=== PATIENT | female | born 1965 | race Caucasian/White ===

== ENCOUNTER → 2016-08-28 | Day surgery (SDC) | payer OTHER ==
[~2016-08-28] MED LIST: BUPIVACAINE HCL PF 0.5% 10 ML VIAL ONE; FLUC100T2 PO; ISOSULFAN BLUE 50 MG/5 ML VIAL SQ ONE; KETOROLAC TROMETHAMINE 30 MG/ML (IVP) VIAL ONE; LACTATED RINGER'S 1000 ML INJ 1,000 ML ONE; LEVA750T PO; MIDAZOLAM HCL 2 MG/2 ML VIAL ONE; NYST1000 SWISH-SWAL; ONDANSETRON HCL 4 MG/2 ML VIAL IV PUSH ONE; PROPOFOL 200 MG/20 ML AMP IV ONE; SODIUM CHLORIDE 0.9% INJ 10 ML ONE; ceFAZolin 2 GM PREMIX 50 ML ONE
--- NOTE | 2016-08-31 07:39 | TN ---
cc: AMPARO AHN DATE OF SURGERY 08/28/2016 PRINCIPAL DIAGNOSIS Right breast cancer status post neoadjuvant chemotherapy. POSTOPERATIVE DIAGNOSIS Right breast cancer status post neoadjuvant chemotherapy. PROCEDURE PERFORMED Right breast needle-localized lumpectomy and right axillary sentinel lymph node biopsy with touch prep and left subclavian [id number] removal. SURGEON Amparo Ahn MD ANESTHESIA General via LMA device. INDICATION The patient is a 51-year-old female who had a clinical presentation of Stage III breast cancer. She completed neoadjuvant chemotherapy with an excellent clinical response and now presents for definitive surgical therapy. FINDINGS AT THE TIME OF SURGERY Two sentinel lymph nodes were sent for touch prep analysis. Lymph node #1 had a count of 10,154 and was not blue. Lymph node #2 was enlarged and suspicious with no blue dye or radioactive count. Both lymph nodes were negative by touch prep for metastatic disease. Two additional sentinel lymph nodes were later found which were not sent for touch prep. [place] lymph node #3 had a count of 849 and was 2+ blue and sentinel lymph node #4 had a count of 301 and was 1+ blue. Specimen mammogram did demonstrate an intact wire and the biopsy clip was identified within the tissue. PROCEDURE PERFORMED After informed consent was obtained and site verification was performed, the patient was brought to the radiology suite where she underwent needle localization of her prior right breast palpable mass and biopsy site as well as peritumoral radionuclide injection. She was then brought to the major operating room where she underwent general anesthesia via an LMA device. She was given a single dose of IV Ancef and sequential compression hose were placed. The right breast and arm as well as the left chest were then prepped and draped in sterile fashion. Two cc of half-strength Lymphazurin were injected in the subareolar right breast and a 5-minute massage was performed. An incision was anesthetized at the inferior aspect of the right axillary hairline and both sharp and electrocautery dissection were performed until the clavipectoral fascia was divided and the level I axilla was entered. Two mid-level I lymph nodes were identified and circumferentially dissected free from surrounding structures with a count as noted. These were sent for touch prep analysis which was negative for metastatic disease. Two additional lymph nodes were identified lower in Level I near the axillary tail of [place] and each of these was circumferentially dissected free from surrounding structures using the harmonic scalpel and these became sentinel nodes #3 and 4 which were sent for permanent pathologic evaluation. Good hemostasis was noted in the axilla and there was no other palpable adenopathy. The wound was closed using interrupted 3-0 Vicryl subcutaneous sutures and a 4-0 Monocryl subcuticular suture. Attention was then turned to the right breast where a very lateral wire was identified in the 9 o'clock location. The incision was anesthetized at the lateral aspect of the breast and the breast was incised sharply in the 9 o'clock location laterally. Both sharp and electrocautery dissection were performed until the wire entry point through the skin was identified and secured with a hemostat. The wire was cut off at the skin with pin cutters and a 2-0 silk transfixion suture was placed at the wire entry point into the breast tissue. Further sharp and electrocautery dissection was then performed circumferentially around the wire and the specimen was oriented with two sutures laterally, one short suture superiorly, and one long suture anteriorly. Inspection of the specimen did demonstrate that the inferior, posterior, and anterior margins appeared close and each of these margins was sharply re-excised with a stitch on the new margin and they were sent as separate permanent specimens. The lumpectomy specimen was sent to x-ray which did demonstrate an intact wire and biopsy clip and was then sent for permanent pathologic evaluation. Hemostasis was obtained within the breast cavity and the wound was closed using interrupted 3-0 Vicryl subcutaneous sutures and a 4-0 Monocryl subcuticular suture. Attention was then turned to the left breast where a medial [id number] site was noted. The area was anesthetized with 0.5% Marcaine plain and incised sharply. The [id number] reservoir was immediately identified and circumferentially dissected free from surrounding structures. The catheter was immediately identified as was the reservoir and sharp dissection was performed around the reservoir until it had been mobilized into the wound. The catheter was then delivered off the field and direct pressure was applied to the subclavian puncture wound for a total of 5 minutes. Good hemostasis was noted and this wound was closed using interrupted 3-0 Vicryl subcutaneous sutures and a 4-0 Monocryl subcuticular suture. Steri-Strips and a sterile dressing were applied. The patient tolerated the procedure well with an estimated blood loss of 50 cc and she was extubated in the operating room and brought to the recovery room in good condition. All sponge and needle counts were correct at the conclusion of the case. MD SUE Redmond/BISI /2:27 PM /7:28 AM
== END | disposition home or self-care (01) ==
LOC: ESDC 08:39
PROVIDERS: ATTEND Surgery
DX: C50.911 Malignant neoplasm of unspecified site of right female breast (principal)
CPT/HCPCS: 00400; 01610; 19125; 36590; 38525; 38792; 88307; J0690; J1885; J2250; J2405; J3010; J7120; Q9968; 88333